=== PATIENT | male | born 1965 | race Caucasian/White ===

== ENCOUNTER 2016-06-23 16:41 | Emergency (ER) | payer OTHER ==
[~2016-06-23] VITALS: Ht 182.9 cm; Wt 81.6 kg
[~2016-06-23 16:41] MED LIST: CLINDAMYCIN HC300 M1 PO; CYCLOBENZAPRINE10 M1 PO; FLEXERIL10 MG PO; IBUPROFEN800 M1 PO; MEDROL4 M2 PO; OXYCODONE HCL15 M1 PO; PERCOCET 5-3251 EACH PO; VOLTAREN 25MG T25 MG PO
--- NOTE | 2016-06-23 17:19 | ED SKIN/ALLERGY COMPLAINT ---
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 +MRSA. PT AFEBRILE, VSS. NO OTHER COMPLAINTS. Triage Nurses Notes Reviewed? yes HPI: Patient is a 51-year-old male presents complaining of abscess to his mid upper back. Patient reports that he had "a bump" for several years to the area and over the past 2-3 days greenberg gotten larger, red and painful. Pain is currently severe, worsens with palpation. Subjective fevers and chills yesterday. Patient taking his chronic pain medication with no improvement. Patient is unsure if there has been drainage from the area. Patient with a history of MRSA. (ROSI MAC) Past History Travel History Traveled to [place] past 21 day No Medical History Any Pertinent Medical History? see below for history Neurological: NONE EENT: NONE, SJS Cardiovascular: NONE Respiratory: NONE Gastrointestinal: NONE Hepatic: NONE Renal: NONE Musculoskeletal: DEGENERATIVE DISKS CHRONIC BACK PAIN Psychiatric: NONE Endocrine: NONE Blood Disorders: NONE Cancer(s): NONE Surgical History Surgical History: non-contributory Psychosocial History What is your primary language Arabic Tobacco Use: Current Daily Use Daily Tobacco Use Amount/Type: => 5 Cigarettes daily Family History Hx Contributory? No (ROSI MAC) Review of Systems Review of Systems Constitutional: Reports: fever, malaise. EENTM: Reports: no symptoms. Respiratory: Reports: no symptoms. Cardiovascular: Reports: no symptoms. GI: Reports: nausea. Genitourinary: Reports: no symptoms. Musculoskeletal: Reports: back pain (chronic, unchanged). Skin: Reports: see HPI. Neurological/Psychological: Reports: no symptoms. Hematologic/Endocrine: Reports: no symptoms. Immunologic/Allergic: Reports: no symptoms. (ROSI MAC) Physical Exam Physical Exam General Appearance: well developed/nourished, alert, awake Head: atraumatic, normal appearance Eyes: Bilateral: normal appearance. Ears, Nose, Throat: hearing grossly normal Neck: normal inspection, supple, full range of motion Respiratory: no respiratory distress Back: 5 cm area of erythema, fluctuance, induration to the midthoracic back. Extremities: normal inspection, normal capillary refill, normal range of motion, no edema Neurologic/Psych: no motor/sensory deficits, awake, alert, oriented x 3, normal gait Skin: See skin exam (ROSI MAC) Progress Differential Diagnosis: abscess/cellulitis, infected sebaceous cyst Plan of Care: Orders Procedure Date/time Status TRUNK AREA CULTURE 06/23 1720 Active Microbiology 06/24 1739 TRUNK: Culture & Sensitivity - RECD 06/24 1739 TRUNK: Gram Stain - RECD Departure Departure Time of Disposition: 1744 Disposition: HOME OR SELF CARE Condition: Stable Clinical Impression Primary Impression: Infected sebaceous cyst of skin Referrals: ZAHRA SIMS DO PATIENT HAS NO PRIMARY CARE DR (PCP/Family) DARRION BETANCUR,DANNY Horta Additional Instructions: Take doxycycline as directed. Take your oxycodone as directed. Also take Ibuprofen as directed. Return to emergency department in 2 days for recheck. Call one of the surgeons listed in your discharge paperwork for further evaluation(there is likely a cyst capsule present that they can evaluate and possibly remove). Return to the emergency department immediately if redness spreading, temperature goes above 100.4, or worsening of symptoms. Departure Forms: Customer Survey General Discharge Information Prescriptions: Current Visit Scripts Doxycycline Hyclate (Vibramycin) 1 CAP PO BID #14 CAP Ibuprofen 1 TAB PO Q8 PRN PAIN #20 TAB (ROSI MAC) PA/DRIER TRANSFER CAR OPERATOR Co-Sign Statement Statement: ED Attending supervision documentation- [] I saw and evaluated the patient. I have also reviewed all the pertinent lab results and diagnostic results. I agree with the findings and the plan of care as documented in the PA's/DRIER TRANSFER CAR OPERATOR's documentation. [X] I have reviewed the ED Record and agree with the PA's/DRIER TRANSFER CAR OPERATOR's documentation. [] Additions or exceptions (if any) to the PAs/DRIER TRANSFER CAR OPERATOR's note and plan are summarized below: [] (MARIA T BETANCUR,LIZ Husain) Procedures Incision and Drainage Progress: Area prepped with Betadine. 1% lidocaine 8 mL injected to the area. 1.5 cm incision made using an 11 blade scalpel. Mixture of purulent and thick white drainage from the area. Blunt dissection to break up loculations. Gauze packing placed. Adequately tolerated by patient. (MARLO BANERJEE,ROSI)
[2016-06-23] MEDS ORDERED: VIBRAMYCIN100 MG PO (17:48)
[2016-06-23] MEDS ORDERED: IBUPROFEN800 M1 PO (17:48)
[2016-06-23 18:35] VITALS: BP 128/79
== END 2016-06-23 18:36 ==
LOC: ERH 16:41
DX: L72.3 Sebaceous cyst (principal)
CPT/HCPCS: 87070

== ENCOUNTER 2017-05-31 18:24 | Emergency (ER) | payer OTHER ==
[~2017-05-31 18:24] MED LIST changes: +VIBRAMYCIN100 MG PO
[2017-05-31 18:30] VITALS: BP 123/75
--- NOTE | 2017-05-31 18:45 | ED EYE COMPLAINT ---
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 FB IN RT EYE, COULSD BE CAST IRON OR PORCELIN, HAPPENED YESTERDAY, TODAY RT EYE RED. ? LAST TETANUS 4 YRS AGO Triage Nurses Notes Reviewed? yes Onset: Abrupt Duration: getting worse Timing: recent history Severity: severe Severity Numbers: 7 HPI: Patient is a 52-year-old male who presents emergency room saying that yesterday patient was hammering cast-iron where he had acute onset of right-sided eye irritation and foreign body concerns where he states that he began rubbing his eye and noted specks of foreign body the removed from his right eye and thought his symptoms had improved however today he has been complaining of worsening right eye pain and photophobia and clear discharge. Patient was evaluated at urgent care facility and was advised to present to emergency room for retained foreign body to the right eye Patient's tetanus status is up-to-date (Garrison Chong) Past History Travel History Traveled to [place] past 21 day No Medical History Any Pertinent Medical History? see below for history Neurological: NONE EENT: NONE, SJS Cardiovascular: NONE Respiratory: NONE Gastrointestinal: NONE Hepatic: NONE Renal: NONE Musculoskeletal: DEGENERATIVE DISKS CHRONIC BACK PAIN Psychiatric: NONE Endocrine: NONE Blood Disorders: NONE Cancer(s): NONE Surgical History Surgical History: non-contributory Psychosocial History What is your primary language Syrian Tobacco Use: Current Daily Use Daily Tobacco Use Amount/Type: => 5 Cigarettes daily Family History Hx Contributory? No (Garrison Chong) Review of Systems Review of Systems Constitutional: Reports: no symptoms. Eyes: Reports: see HPI, blurred vision, drainage, pain, photophobia. Ear: Reports: no symptoms. Nose: Reports: no symptoms. Mouth: Reports: no symptoms. Throat: Reports: no symptoms. Respiratory: Reports: no symptoms. Cardiovascular: Reports: no symptoms. GI: Reports: no symptoms. Genitourinary: Reports: no symptoms. Musculoskeletal: Reports: no symptoms. Skin: Reports: no symptoms. Neurological/Psychological: Reports: no symptoms. Hematologic/Endocrine: Reports: no symptoms. Immunologic/Allergic: Reports: no symptoms. All Other Systems: Reviewed and Negative (Garrison Chong) Physical Exam General Appearance: no apparent distress General Inspection: normal inspection Eyelid: normal inspection Conjunctiva/Sclera: normal inspection Cornea: normal inspection EOM: intact Pupil: normal accommodation, normal pupil, PERRL General Inspection: SEE DIAGRAM Eyelid: normal inspection Conjunctiva/Sclera: injected Cornea: normal inspection, examined w/fluorescein EOM: intact Pupil: normal accommodation, normal pupil, PERRL Eye Right 1) Noted linear corneal abrasion AND FLUOROSCEINE uptake 2) Noted corneal injection 3) Please note that it is noted scleral injection Disregard ANNOTATE #2 Physical Exam Head: atraumatic Nose: normal inspection Neck: normal inspection Cardiovascular/Respiratory: normal breath sounds, normal peripheral pulses Neurologic/Psych: no motor/sensory deficits Skin: intact, normal color (Garrison Chong) Progress Differential Diagnosis: corneal abrasion, corneal foreign body, conjunctivitis, detached retina, glaucoma, globe rupture Plan of Care: Initially I used multiple dosings of tetracaine drops to patient's right eye after fluorescein staining was performed there is noted uptake for corneal abrasion, using a wet cotton swab there was multiple attempts to remove a suspecting foreign body VS. CORNEAL ABRASION which patient did tolerate this procedure well therefore I then progressed using a 16-gauge needle to the foreign body concern after multiple attempts there was no foreign body removed, Patient's tetanus status is up-to-date patient was strongly advised to follow-up with ophthalmology. Patient was PERRLA extraocular muscles intact (Garrison Chong) Departure Departure Disposition: HOME OR SELF CARE Condition: Stable Clinical Impression Primary Impression: Corneal abrasion, right Secondary Impressions: Foreign body in eyeball, right Referrals: Patient Has No Primary Care Dr (PCP/Family) Kirill BETANCUR,Paulie Aparicio Additional Instructions: As discussed on Friday please follow up with sweatband perforator Dr. LARRY for further evaluation treatment, begin the prescription of ofloxacin drops and Acular drops for your symptoms, if symptoms worsen return to emergency room. PRESCRIPTIONS waiting at [facility] Departure Forms: Customer Survey General Discharge Information Prescriptions: Current Visit Scripts Ofloxacin (Ocuflox) 1 GTT OPH 4 TIMES/DAY #5 ML Ketorolac Tromethamine (Acular) 1 GTT OPH 4 TIMES/DAY #5 ML (Garrison Chong) PA/RESIDENT CARE ASSOCIATE Co-Sign Statement Statement: ED Attending supervision documentation- [] I saw and evaluated the patient. I have also reviewed all the pertinent lab results and diagnostic results. I agree with the findings and the plan of care as documented in the PA's/RESIDENT CARE ASSOCIATE's documentation. [x] I have reviewed the ED Record and agree with the PA's/RESIDENT CARE ASSOCIATE's documentation. [] Additions or exceptions (if any) to the PAs/RESIDENT CARE ASSOCIATE's note and plan are summarized below: [] (Pia BETANCUR,Kelechi Hagen)
[2017-05-31] MEDS ORDERED: ACULAR5 ML OPH (19:18)
[2017-05-31] MEDS ORDERED: OCUFLOX5 ML OPH (19:18)
== END 2017-05-31 19:36 ==
LOC: ERH 18:24
DX: S05.01XA Injury of conjunctiva and corneal abrasion without foreign body, right eye, initial encounter (principal); T15.81XA Foreign body in other and multiple parts of external eye, right eye, initial encounter